=== PATIENT | male | born 1950 | race Caucasian/White ===

== ENCOUNTER → 2016-09-06 | Day surgery (SDC) | payer OTHER ==
[~2016-09-06] VITALS: Ht 165.1 cm; Wt 77.3 kg
[~2016-09-06] MED LIST: ACETAMINOPHEN 500 MG CPLT PO PRN; AMLO5TAB2 PO; ASPI-110 PO; ATOR1TAB18 PO; ATROPINE SULFATE 1% OPHT SOLN 2 ML BTL ONE; AZOP1SUS EACH EYE; BALANCED SALT SOLN OPHT IRRIG 15 ML BTL ONE; CHLORHEXIDINE GLUCONATE 2 % 1 PACK (2 CLOTHS) TOPICAL PRN; CHOL1CAP14 PO; DEXAMETHASONE SOD PHOS 4 MG/ML VIAL ONE; DO NOT ADM ANY ANTICOAGULANT DRUGS PRN; EPINEPHrine HCL (1:1000) 1 MG/ML VIAL ONE; FAMOTIDINE 20 MG/2 ML VIAL ONE; HYDR25TA5 PO; INSULIN HUMAN REGULAR 1,000 UNITS/10 ML VIAL SQ PRN; ISOS30TA3 PO; LACTATED RINGER'S 1000 ML IV PRN; LANTUS2P SQ; LATA0.002 EACH EYE; LEVEMIR SQ; LISI10TA3 PO; METF500T PO; METO50TA PO; METOPROLOL TARTRATE 25 MG TAB PO PRN; MIDAZOLAM HCL 2 MG/2 ML VIAL ONE; NOVOLOGP2 SQ; NOVOLOGSS SQ; OMEP40CA2 PO; ONDANSETRON HCL 4 MG/2 ML VIAL IV PUSH ONE; ONDANSETRON HCL 4 MG/2 ML VIAL OTHER PRN; POVIDONE IODINE 5% (ANTISEPSIS KIT) 4 APPLICATIONS EACH NARE PRN; PROPOFOL 200 MG/20 ML AMP IV ONE; SODIUM CHLORID 0.9% 500 ML IV PRN; STERILE WATER FOR INJ 20 ML VIAL ONE; TOBRAMYCIN/DEXAMETHASONE OPTH OINT 3.5 GM TUBE ONE; TRIAMCINOLONE ACETONIDE/PF 40 MG/ML OPTH VIAL ONE; ZANT300T PO; ceFAZolin INJ 1,000 MG VIAL ONE; ePHEDrine/NS 25 MG/5 ML SYR IV ONE; oxyCODONE/ACETAMINOPHEN 5 MG/325 MG TAB ONE; oxyCODONE/ACETAMINOPHEN 5 MG/325 MG TAB PO PRN
[2016-09-06 08:10] VITALS: BP 140/69; PULSE 63; RESP 18; TEMP 98; O2SAT 96
[2016-09-06 08:20] LABS: AUTOMATED NEUTROPHIL # 4.5 TH/MM3 (1.8-7.7); BASOPHIL # 0.1 TH/MM3 (0-0.2); BASOPHIL % 0.9 % (0.0-2.0); EOSINOPHIL # 0.1 TH/MM3 (0-0.4); EOSINOPHIL % 1.8 % (0.0-4.0); HEMATOCRIT 39.3 % (39.0-51.0); HEMO FLAGS DIFF FINAL; LYMPH % 27.8 % (9.0-44.0); LYMPHOCYTE # 2.1 TH/MM3 (1.0-4.8); MEAN CELL VOLUME 81.7 FL (80.0-100.0); MEAN CORPUSCULAR HEMOGLOBIN 27.1 PG (27.0-34.0); MEAN CORPUSCULAR HGB CONC 33.1 % (32.0-36.0); MONO % 8.6 % (0.0-8.0); NEUT % 60.9 % (16.0-70.0); PLATELET COUNT 293 TH/MM3 (150-450); RED BLOOD COUNT 4.81 MIL/MM3 (4.50-5.90); RED CELL DISTRIBUTION WIDTH 14.8 % (11.6-17.2); WHITE BLOOD COUNT 7.4 TH/MM3 (4.0-11.0)
[2016-09-06] MEDS: TROPICAMIDE 1% OPHT SOLN 15 ML BTL RIGHT EYE SCH ×3 (08:20→08:50)
[2016-09-06] MEDS: PHENYLEPHRINE HCL 2.5% OPTH SOLN 2 ML BTL RIGHT EYE SCH ×3 (08:20→08:50)
[2016-09-06] MEDS: CYCLOPENTOLATE HCL 1% OPHT SOLN 2 ML BTL RIGHT EYE SCH ×3 (08:20→08:50)
[2016-09-06] MEDS: ATROPINE SULFATE 1% OPHT SOLN 5 ML BTL RIGHT EYE SCH ×3 (08:20→08:50)
[2016-09-06 11:30] VITALS: BP 119/53; PULSE 72; RESP 18; TEMP 97.5; O2SAT 94
--- NOTE | 2016-09-06 12:42 | EKG ---
Date Performed: 09/06/2016 Time Performed: 07:30:37 PTAGE: 65 years EKG: Sinus rhythm NORMAL ECG PREVIOUS TRACING : 06/03/2014 07.02 DOCTOR: Peter Craig Interpretating Date/Time 09/06/2016 12:39:25
--- NOTE | 2016-09-07 23:01 | MP ---
cc: SUDHAKAR FOURNIER MD DATE OF SURGERY 09/06/2016. Mr. Campos is a diabetic with a history of severe proliferative diabetic retinopathy OU. He has previously had panretinal photocoagulation in both eyes. He has continued to have bleeding in his right eye off and on and nonclearing vitreous hemorrhage for the last 3 months. He wishes to proceed electively with a vitrectomy, fill in laser PRP, to try and improve his visual functioning. The risks and benefits of surgery were discussed with the patient and informed consent was obtained. No guarantee was made as to visual outcome. PROCEDURE IN DETAIL He was brought to [facility] operating room one and placed on the operating table. Appropriate anesthesia monitoring devices were applied and he was placed under general anesthesia using a laryngeal mask. The right eye was identified as the operative site and then prepped and draped in the usual sterile fashion. A lid speculum was placed. The microscope was brought around and adjusted. At this time, an appropriate time-out was called with the surgical team agreeing to the surgical site and proposed procedure. Using the Pavel 23-gauge vitrectomy system, the trocar cannulas were placed 3 1/2 mm posterior to the limbus after first displacing the conjunctiva. The first one was placed at approximately 8:30 o'clock and verified to be in the posterior chamber. An infusion cannula was affixed to it and was turned on. Two additional trocar cannulas were placed at 10 and 2 o'clock. The blood superiorly was avoided. A small amount of Kenalog was used to visualize the vitreous. This was introduced through the cannula with a soft tipped linear extrusion needle. A core vitrectomy was carried out with the Endoilluminator light pipe and vitrectomy cutter using the flat contact lens. The residual Kenalog was vacuumed off the posterior pole. The BIOME wide angle viewing system was used to remove the peripheral vitreous and hemorrhage. Endolaser photocoagulation was added in areas not previously treated using a power of 250 milliwatts and 0.1-second exposure. A total of 156 laser spots were placed. The fundus was inspected. No retinal breaks was were found. Using the soft tipped linear extrusion needle, an air-fluid exchange was performed after which the trocar cannulas were removed one by one with tamponade of the site with a cotton swab and diathermy to the overlying conjunctival wound. This left the eye with good pressure and no visible air leaks. Atropine drops were placed on the cornea and subconjunctival injections of Ancef 125 mg in 0.5 ml and Decadron 2 mg in 0.5 ml were given at separate sites. The lid speculum was removed and the patient was undraped. 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 The patient had the laryngeal mass removed in the room and was returned to recovery in good condition laying on his left side. MD DELIA Voss/ /10:20 AM /10:49 PM
== END | disposition home or self-care (01) ==
LOC: HSDC 07:00
PROVIDERS: ATTEND Ophthalmology
DX: H43.11 Vitreous hemorrhage, right eye (principal); E11.3599 Type 2 diabetes mellitus with proliferative diabetic retinopathy without macular edema, unspecified eye; I11.9 Hypertensive heart disease without heart failure; I51.9 Heart disease, unspecified; G51.0 Bell's palsy; Z95.1 Presence of aortocoronary bypass graft
CPT/HCPCS: 00145; 67025; 67039; 85025; 93005; J0171; J0690; J1100; J2250; J2405; J3010; J3300; J7120